=== PATIENT | male | born 1985 | race Caucasian/White ===

== ENCOUNTER 2017-08-20 17:30 | Emergency (ER) | payer BC, OTHER ==
--- NOTE | 2017-08-20 17:39 | PDOC ---
Rapid Medical Evaluation Time Seen by Provider: 08/20/17 17:33 Medical Evaluation: Allergies Allergy/AdvReac Type Severity Reaction Status Date / Time No Known Allergies Allergy Verified 07/10/15 09:34 08/20/17 17:34 The patient presents with a chief complaint of: Palpitations. Pt. states he is congested for a week. (+) coughing, dry. Hx of panic attacks I have performed a brief in-person evaluation of this patient; Pertinent physical exam findings: CTAB I have ordered the following: EKG, CXR The patient will proceed to the ED for further evaluation.
[2017-08-20 17:43] VITALS: BP 142/88; PULSE 61; TEMP 98; BMI 27.0
--- NOTE | 2017-08-20 18:26 | PDOC ---
History of Present Illness - General Chief Complaint: Cold Symptoms Stated Complaint: PALPITATIONS Time Seen by Provider: 08/20/17 17:33 History Source: Patient Exam Limitations: No Limitations - History of Present Illness Initial Comments: 08/20/17 18:24 32-year-old male with no medical history presents to the emergency department complaining of cx congestion times approximately 2 weeks which subsided without fever, chills, headache, lightheadedness, dizziness, facial pain, cough, sore throat, neck pain/stiffness, back pains, chest pain, shortness of breath, abdominal pain, urinary symptoms. Patient states he waited to 2 weeks until he was available to be examined. Patient states he believes he had bronchitis which has subsided but wanted to get it examined today while he have time. Pt denies prolong sitting, leg/calf pain, hemoptysis, recent travels. Timing/Duration: reports: other ([id number]) Past History - Past Medical History Allergies/Adverse Reactions: Allergies Allergy/AdvReac Type Severity Reaction Status Date / Time No Known Allergies Allergy Verified 08/20/17 17:38 Home Medications: Ambulatory Orders No Home Medications 0 dose .ROUTE UTDICT 03/03/13 COPD: No Psychiatric Problems: Yes (panic attack) - Suicide/Smoking/Psychosocial Hx Smoking Status: No Smoking History: Never smoked Have you smoked in the past 12 months: No Number of Cigarettes Smoked Daily: 0 Information on smoking cessation initiated: No Hx Alcohol Use: No Drug/Substance Use Hx: Yes (coccaine, steroids,) Substance Use Type: Cocaine Review of Systems - Review of Systems Able to Perform ROS?: Yes Comments:: 08/20/17 18:24 CONSTITUTIONAL: Absent: fever, chills, diaphoresis, generalized weakness, malaise, loss of appetite HEENT: Absent: rhinorrhea, nasal congestion, throat pain, throat swelling, difficulty swallowing, mouth swelling, ear pain, eye pain, visual Changes CARDIOVASCULAR: Absent: chest pain, loss of consciousness, palpitations, irregular heart rate, peripheral edema RESPIRATORY: "Chest congestion" Absent: cough, shortness of breath, dyspnea with exertion, orthopnea, wheezing, stridor, hemoptysis GASTROINTESTINAL: Absent: abdominal pain, abdominal distension, nausea, vomiting, diarrhea, constipation, melena, hematochezia GENITOURINARY: Absent: dysuria, frequency, urgency, hesitancy, hematuria, flank pain, genital pain MUSCULOSKELETAL: Absent: myalgia, arthralgia, joint swelling SKIN: Absent: rash, itching, pallor HEMATOLOGIC/IMMUNOLOGIC: Absent: easy bleeding, easy bruising, lymphadenopathy, frequent infections ENDOCRINE: Absent: unexplained weight gain, unexplained weight loss, heat intolerance, cold intolerance NEUROLOGIC: Absent: headache, focal weakness or paresthesias, dizziness, unsteady gait, seizure, mental status changes, bladder or bowel incontinence PSYCHIATRIC: Absent: anxiety, depression, suicidal or homicidal ideation, hallucinations. Is the patient limited Estonian proficient: No *Physical Exam - Vital Signs Last Vital Signs Temp Pulse Resp BP Pulse Ox 98.0 F 61 18 142/88 100 08/20/17 17:39 08/20/17 17:39 08/20/17 17:39 08/20/17 17:39 08/20/17 17:39 - Physical Exam Comments: 08/20/17 18:24 GENERAL: Well developed, well nourished. Awake and alert. No acute distress. HEENT: Normocephalic, atraumatic. PERRLA, EOMI. No conjunctival pallor. Sclera are non- icteric. Moist mucous membranes. Oropharynx is clear. NECK: Supple. Full ROM. No JVD. Carotid pulses 2+ and symmetric, without bruits. No thyromegaly. No lymphadenopathy. CARDIOVASCULAR: Regular rate and rhythm. No murmurs, rubs, or gallops. Distal pulses are 2+ and symmetric. PULMONARY: No evidence of respiratory distress. Lungs clear to auscultation bilaterally. No wheezing, rales or rhonchi. ABDOMINAL: Soft. Non-tender. Non-distended. No rebound or guarding. No organomegaly. Normoactive bowel sounds. MUSCULOSKELETAL Normal range of motion at all joints. No bony deformities or tenderness. No CVA tenderness. EXTREMITIES: No cyanosis. No clubbing. No edema. No calf tenderness. SKIN: Warm and dry. Normal capillary refill. No rashes. No jaundice. NEUROLOGICAL: Alert, awake, appropriate. Cranial nerves 2-12 intact. No deficits to light touch and temperature in face, upper extremities and lower extremities. No motor deficits in the in face, upper extremities and lower extremities. Normoreflexic in the upper and lower extremities. Normal speech. Toes are down- going bilaterally. Gait is normal without ataxia. PSYCHIATRIC: Cooperative. Good eye contact. Appropriate mood and affect. ED Treatment Course - RADIOLOGY Radiograph Interpretation: 08/20/17 18:26 CXR: NAD *DC/Admit/Observation/Transfer Diagnosis at time of Disposition: Congestion of upper airway - Discharge Dispostion Disposition: HOME Condition at time of disposition: Stable Admit: No - Referrals Referrals: Doni Limon MD [Primary Care Provider] - - Patient Instructions Printed Discharge Instructions: DI for Common Cold Additional Instructions: Rest Increase fluids ++FOLLOW UP WITH YOUR PHYSICIAN++ Return to the ER for severe/persistent/worsening symptoms - Post Discharge Activity
--- NOTE | 2017-08-21 14:33 | EKG ---
Test Reason : Blood Pressure : / mmHG Vent. Rate : 061 BPM Atrial Rate : 061 BPM P-R Int : 166 ms QRS Dur : 092 ms QT Int : 394 ms P-R-T Axes : 049 056 021 degrees QTc Int : 396 ms NORMAL SINUS RHYTHM NORMAL ECG WHEN COMPARED WITH ECG OF 10-JUL-2015 10:38, NO SIGNIFICANT CHANGE WAS FOUND Confirmed by FILEMON COCHRAN MD ([id number]) on 08/21/2017 2:33:12 PM Referred By: Confirmed By:FILEMON COCHRAN MD
== END 2017-08-20 18:59 | disposition home or self-care (01) ==
LOC: JERFT 17:30
DX: R09.89 Other specified symptoms and signs involving the circulatory and respiratory systems (principal); F41.0 Panic disorder [episodic paroxysmal anxiety]
CPT/HCPCS: 71020-TC; 93005; 93010; 99281-25

== ENCOUNTER 2021-06-17 15:52 | Emergency (ER) | payer SELFPAY ==
[2021-06-17 16:19] VITALS: BP 137/88; PULSE 72; TEMP 97.9; BMI 27.7
== END 2021-06-17 18:24 | disposition home or self-care (01) ==
LOC: JER 15:52
DX: J02.9 Acute pharyngitis, unspecified (principal)
CPT/HCPCS: 87070; 99283-25; C9803; U0003; U0005

== ENCOUNTER 2023-04-02 16:19 | Emergency (ER) | payer BC, OTHER ==
[2023-04-02 16:27] VITALS: BP 144/70; PULSE 74; RESP 18; TEMP 98.2; BMI 29.1
== END 2023-04-02 17:37 | disposition home or self-care (01) ==
LOC: JERFT 16:19
DX: S50.812A Abrasion of left forearm, initial encounter (principal); W54.8XXA Other contact with dog, initial encounter; Y93.K9 Activity, other involving animal care; Y92.830 Public park as the place of occurrence of the external cause
CPT/HCPCS: 99282-25